=== PATIENT | female | born 1960 | race Caucasian/White ===

== ENCOUNTER 2017-03-29 17:53 | Emergency (ER) | payer BC ==
[~2017-03-29] VITALS: Ht 160 cm; Wt 68.0 kg
[~2017-03-29 17:53] MED LIST: ATARAX25 MG PO; DAYPRO600 M1 PO; KEFLEX500 MG PO; LIDEX0.05% T; NKHM; PREDNISONE10 MG PO; PREDNISONE20 MG PO; ROBITUSSIN DM 105 ML PO; VICODIN 500 MG-1 TAB PO
[2017-03-29 18:45] LABS: BASO # 0.1 10*3/uL (0.0-0.1); BASO % 0.9 % (0.0-1.0); EOS # 0.3 10*3/uL (0.0-0.4); EOS % 3.1 % (1.0-4.0); HEMATOCRIT 42.2 % (37.0-47.0); HEMOGLOBIN 13.7 g/dl (12.0-16.0); LYMPH # 3.2 10*3/uL (1.3-4.4); LYMPH % 34.2 % (27.0-41.0); MEAN CELL VOLUME 100.5 fl (81.0-99.0); MEAN CORPUSCULAR HGB 32.6 pg (27.0-31.0); MEAN CORPUSCULAR HGB CONC 32.5 g/dl (33.0-37.0); MEAN PLATELET VOLUME 10.4 fl (9.6-12.3); MONO # 0.4 10*3/uL (0.1-1.0); MONO % 4.4 % (3.0-9.0); NEUT # 5.3 10*3/uL (2.3-7.9); NEUT % 57.2 % (47.0-73.0); PLATELET COUNT AUTOMATED 284 10*3/uL (130-400); RED CELL DISTRI WIDTH 12.8 % (0-14.5); WHITE BLOOD COUNT 9.3 10*3/uL (4.8-10.8)
[2017-03-29 18:56] LABS: INTERNATIONAL NORM RATIO 0.9 (2.0-3.5); PROTHROMBIN TIME 9.5 SECONDS (9.0-12.4)
[2017-03-29 19:03] LABS: ALKALINE PHOSPHATASE 72 U/L (45-117); BILIRUBIN, TOTAL 0.2 mg/dl (0.2-1.0); BUN 5 mg/dl (7-24); CARBON DIOXIDE 27 mmol/L (21-32); CHLORIDE 110 mmol/L (98-107); EST GLOM FILT AFRICAN AMERICAN > 60 ml/min; GLUCOSE 87 mg/dL (65-99); POTASSIUM 3.8 mmol/L (3.5-5.1); SGOT/AST 29 IU/L (3-35); SGPT/ALT 33 U/L (12-78); SODIUM 143 mmol/L (136-145)
[2017-03-29 19:06] LABS: TROPONIN I < 0.015 ng/ml (<0.045)
[2017-03-29] MEDS ORDERED: PEPCID20 MG PO (19:27)
== END 2017-03-29 19:43 | disposition home or self-care (01) ==
LOC: ED 17:53
PROVIDERS: Physician Assistant
DX: R47.02 Dysphasia (principal); F17.200 Nicotine dependence, unspecified, uncomplicated; Z91.012 Allergy to eggs

== ENCOUNTER 2018-10-02 21:40 | Emergency (ER) | payer BC ==
[~2018-10-02] VITALS: Ht 160 cm; Wt 65.8 kg
[~2018-10-02 21:40] MED LIST changes: +PEPCID20 MG PO
== END 2018-10-03 00:08 | disposition home or self-care (01) ==
LOC: ED 21:40
DX: S42.292A Other displaced fracture of upper end of left humerus, initial encounter for closed fracture (principal); S42.402A Unspecified fracture of lower end of left humerus, initial encounter for closed fracture; S66.912A Strain of unspecified muscle, fascia and tendon at wrist and hand level, left hand, initial encounter; F17.200 Nicotine dependence, unspecified, uncomplicated; Z91.012 Allergy to eggs; W01.0XXA Fall on same level from slipping, tripping and stumbling without subsequent striking against object, initial encounter; Y93.89 Activity, other specified; Y92.89 Other specified places as the place of occurrence of the external cause; Y99.8 Other external cause status

== ENCOUNTER 2024-03-29 15:55 | Emergency (ER) | payer BC ==
[~2024-03-29] VITALS: Ht 160 cm; Wt 68.0 kg
[2024-03-29] MEDS ORDERED: ACETAMINOPHEN 325 MG TAB PO ONE (17:30)
[2024-03-29] MEDS ORDERED: Acetaminophen/Hydrocodone 5 MG/325 MG TABLET PO ONE (20:15)
== END 2024-03-29 20:15 | disposition home or self-care (01) ==
LOC: ED 15:55
DX: S82.002A Unspecified fracture of left patella, initial encounter for closed fracture (principal); Z91.012 Allergy to eggs; W18.09XA Striking against other object with subsequent fall, initial encounter; Y93.89 Activity, other specified; Y92.89 Other specified places as the place of occurrence of the external cause; Y99.8 Other external cause status

== ENCOUNTER → 2024-04-07 | Outpatient (CLI) | payer BC | END | disposition home or self-care (01) | LOC: ORTHO 02:30 | PROVIDERS: ATTEND Orthopaedic Surgery | DX: S82.035D Nondisplaced transverse fracture of left patella, subsequent encounter for closed fracture with routine healing (principal); X58.XXXD Exposure to other specified factors, subsequent encounter ==

== ENCOUNTER → 2024-04-21 | Outpatient (CLI) | payer BC | END | disposition home or self-care (01) | LOC: RAD 01:42 | PROVIDERS: ATTEND Orthopaedic Surgery | DX: S82.035D Nondisplaced transverse fracture of left patella, subsequent encounter for closed fracture with routine healing (principal); X58.XXXD Exposure to other specified factors, subsequent encounter ==

== ENCOUNTER → 2024-05-05 | Outpatient (CLI) | payer BC | END | disposition home or self-care (01) | LOC: ORTHO 02:17 | PROVIDERS: ATTEND Orthopaedic Surgery | DX: S82.035D Nondisplaced transverse fracture of left patella, subsequent encounter for closed fracture with routine healing (principal); M17.11 Unilateral primary osteoarthritis, right knee; M25.461 Effusion, right knee; X58.XXXD Exposure to other specified factors, subsequent encounter ==

== ENCOUNTER → 2024-05-12 | Outpatient (CLI) | payer BC | END | disposition home or self-care (01) | LOC: ORTHO 02:16 | PROVIDERS: ATTEND Orthopaedic Surgery | DX: S82.035D Nondisplaced transverse fracture of left patella, subsequent encounter for closed fracture with routine healing (principal); X58.XXXD Exposure to other specified factors, subsequent encounter ==